=== PATIENT | female | born 1980 | race Caucasian/White ===

== ENCOUNTER 2017-03-14 15:28 | Emergency (ER) | payer SELFPAY ==
[2017-03-14 15:39] VITALS: BP 92/67
[2017-03-14] MEDS ORDERED: OXYCODONE-ACETAMINOPHEN 5-325 MG TABLET PO ONE (16:54)
[2017-03-14] MEDS ORDERED: PENICILLIN V POTASSIUM 500 MG TABLET PO ONE (16:54)
--- NOTE | 2017-03-14 16:57 | ER Document Report ---
HPI - HPI Patient complains to provider of: dental pain Onset: Other - 4 days Onset/Duration: Persistent Quality of pain: Throbbing Pain Level: 5 Context: She states she broke her tooth 4 days ago. Patient complains of severe dental pain. No fever or facial swelling at this time. Associated Symptoms: Other - dental pain Exacerbated by: Denies Relieved by: Denies Similar symptoms previously: No Recently seen / treated by doctor: No - ROS ROS below otherwise negative: Yes Systems Reviewed and Negative: Yes All other systems reviewed and negative - EENT Notes: dental pain - RESPIRATORY Respiratory: DENIES: Coughing - GASTROINTESTINAL Gastrointestinal: DENIES: Nausea, Patient vomiting - DERM Skin Color: Normal Skin Problems: None Past Medical History - General Information source: Patient - Social History Smoking Status: Current Every Day Smoker Frequency of alcohol use: None Drug Abuse: None Occupation: none Lives with: Family Family History: Reviewed & Not Pertinent - Medical History Medical History: Negative Surgical Hx: Negative Vertical Provider Document - CONSTITUTIONAL Agree With Documented VS: Yes Exam Limitations: No Limitations General Appearance: Mild Distress - INFECTION CONTROL TRAVEL OUTSIDE OF THE [place] IN LAST 30 DAYS: No - HEENT HEENT: Atraumatic, Normocephalic Mouth Diagram: 1 - Dental fracture, exquisite tenderness - NECK Neck: Normal Inspection, Supple. negative: Lymphadenopathy-Left, Lymphadenopathy-Right - RESPIRATORY Respiratory: Breath Sounds Normal, No Respiratory Distress O2 Sat by Pulse Oximetry: 100 - CARDIOVASCULAR Cardiovascular: Regular Rate, Regular Rhythm - BACK Back: Normal Inspection - MUSCULOSKELETAL/EXTREMETIES Musculoskeletal/Extremeties: MAEW - NEURO Level of Consciousness: Awake, Alert, Appropriate Motor/Sensory: No Motor Deficit - DERM Integumentary: Warm, Dry, No Rash Course - Re-evaluation Re-evalutation: 03/14/17 16:55 Controlled substance database reviewed. Offered patient dental block, patient declines. Will give patient prescription for pain medication as well as antibiotic. Patient states she has made an appointment with her dentist in the [facility] and does not travel until Sunday back home. - Vital Signs Vital signs: Temp Pulse Resp BP Pulse Ox 97.9 F 85 20 92/67 L 100 03/14/17 15:37 03/14/17 15:37 03/14/17 15:37 03/14/17 15:37 03/14/17 15:37 Discharge - Discharge Clinical Impression: Toothache, dental fracture Condition: Stable Disposition: HOME, SELF-CARE Instructions: Oral Narcotic Medication ([facility]), Penicillin V K ([facility]), Toothache ( [facility]) Additional Instructions: Return immediately for any new or worsening symptoms Followup with your dental care provider, call tomorrow to make a followup appointment Prescriptions: Acetaminophen with Codeine [Acetaminophen-Cod #3 Tablet] 1 each PO Q6 PRN #15 tablet PRN Reason: Naproxen [Naprosyn 250 Nmg Tablet] 1 tab PO BID #14 tablet Penicillin V Potassium [Penicillin Vk 500 mg Tablet] 500 mg PO BID #20 tablet Referrals: [facility] [Provider Group] - Follow up tomorrow
== END 2017-03-14 17:03 | disposition home or self-care (01) ==
LOC: ER 15:28
DX: S02.5XXA Fracture of tooth (traumatic), initial encounter for closed fracture (principal); X58.XXXA Exposure to other specified factors, initial encounter; K08.89 Other specified disorders of teeth and supporting structures; F17.200 Nicotine dependence, unspecified, uncomplicated
CPT/HCPCS: 99282